=== PATIENT | female | born 1965 | race African-American/Black ===

== ENCOUNTER 2020-07-02 21:17 | Inpatient (IN) | payer MEDICARE ==
[~2020-07-02] VITALS: Ht 170.2 cm; Wt 75.3 kg
[2020-07-02 21:21] VITALS: BP 200/90
[2020-07-02] MEDS ORDERED: NORVASC5 MG PO (21:22)
[2020-07-02] MEDS ORDERED: COREG12.5 MG (21:26)
[2020-07-02] MEDS ORDERED: CLONIDINE HCL0.1 MG PO (21:27)
[2020-07-02] MEDS ORDERED: XANAX0.25 MG (21:28)
[2020-07-02] MEDS ORDERED: NORMODYNE / TR100 MG (21:28)
[2020-07-02] MEDS ORDERED: DILANTIN100 MG PO (21:36)
[2020-07-02 22:00] VITALS: BP 219/97
--- NOTE | 2020-07-02 22:05 | NUR ---
PT FROM ER VIA W/C. PT AAO X 4, RESP EVEN AND UNLABORED, NO DISTRESS NOTED, CL IN REACH, SR UP X 2.
[2020-07-03] MEDS ORDERED: COREG12.5 MG PO (00:05)
[2020-07-03 00:07] VITALS: BP 210/93
[2020-07-03] MEDS ORDERED: XANAX0.25 MG PO (00:09)
[2020-07-03 03:57] VITALS: BP 210/93; BMI 26.1
[2020-07-03 05:09] VITALS: BP 210/93
[2020-07-03 06:24] LABS: BASOPHILS 0.5 % (0-2); EOSINOPHILS 2.2 % (0-7); HEMATOCRIT 28.1 % (36.0-48.0); HEMOGLOBIN 8.7 g/dL (12-16); IMMATURE GRANULOCYTES 0.2 % (0-5); LYMPHOCYTE ABS# 1.86 10x3/uL (1.18-3.74); LYMPHOCYTES 28.9 % (15-50); MCV 93.7 fL (80.0-100.0); MEAN PLATELET VOLUME 11.1 fL (7.4-10.4); MONOCYTES 12.7 % (2-11); NEUTROPHIL ABS# 3.58 10x3/uL (1.56-6.13); NEUTROPHILS 55.5 % (40-80); PLATELET COUNT 281 10x3/uL (130-400); RDW 13.3 % (11.5-14.5); WBC 6.4 10x3/uL (4.8-10.8)
[2020-07-03 06:38] LABS: APTT 35.2 SECONDS (22.8-39.4)
[2020-07-03 06:48] LABS: ALBUMIN 2.8 g/dL (3.4-5.0); ANION GAP 18.5 mmol/L (8-16); BILIRUBIN - TOTAL 0.44 mg/dL (0.2-1.3); CALCIUM 8.9 mg/dL (8.5-10.1); CREATININE - SERUM 9.8 mg/dL (0.6-1.3); PHENYTOIN (DILANTIN) 0.9 ug/mL (10.0-20.0); PHOSPHOROUS 5.1 mg/dL (2.5-4.9); POTASSIUM - SERUM 4.5 mmol/L (3.5-5.1)
[2020-07-03 07:13] LABS: INR 1.24 (0.85-1.17); PROTIME 14.4 SECONDS (11.6-15.0)
[2020-07-03 08:17] VITALS: BP 166/66
[2020-07-03 11:36] VITALS: BP 146/66
[2020-07-03 12:54] VITALS: Ht 170.2 cm; Wt 75.3 kg
--- NOTE | 2020-07-03 14:19 | NUR ---
DIALYSIS COORDINATOR: OPHD SCHEDULE: [facility] TUE/TUE/TUE - 6:30 AM. BMM DC - PATIENT PATHWAYS
[2020-07-03 21:33] VITALS: BP 166/67
[2020-07-04 00:56] VITALS: BP 167/70
[2020-07-04 04:49] VITALS: BP 169/68
--- NOTE | 2020-07-04 05:18 | NUR ---
I have reviewed this patient and I concur with the Shift Assessment completed by the Licensed Practical Nurse today this shift.
[2020-07-04 05:44] LABS: BASOPHILS 0.4 % (0-2); HEMATOCRIT 26.9 % (36.0-48.0); HEMOGLOBIN 8.5 g/dL (12-16); IMMATURE GRANULOCYTES 0.2 % (0-5); LYMPHOCYTE ABS# 1.22 10x3/uL (1.18-3.74); LYMPHOCYTES 22.3 % (15-50); MCH 29.5 pg (26.0-34.0); MCHC 31.6 g/dL (31.0-37.0); MCV 93.4 fL (80.0-100.0); MEAN PLATELET VOLUME 10.8 fL (7.4-10.4); MONOCYTES 17.2 % (2-11); NEUTROPHIL ABS# 3.17 10x3/uL (1.56-6.13); NEUTROPHILS 57.9 % (40-80); PLATELET COUNT 272 10x3/uL (130-400); RBC 2.88 10x6/uL (4.00-5.40); RDW 13.2 % (11.5-14.5); WBC 5.5 10x3/uL (4.8-10.8)
[2020-07-04 06:05] LABS: ALBUMIN 2.7 g/dL (3.4-5.0); ANION GAP 13.1 mmol/L (8-16); BILIRUBIN - TOTAL 0.27 mg/dL (0.2-1.3); CALCIUM 8.6 mg/dL (8.5-10.1); MAGNESIUM - SERUM 1.9 mg/dL (1.8-2.4); PHOSPHOROUS 4.4 mg/dL (2.5-4.9); POTASSIUM - SERUM 4.3 mmol/L (3.5-5.1)
[2020-07-04 06:08] LABS: CARBON DIOXIDE 28.2 mmol/L (21.0-32.0); CREATININE - SERUM 7.1 mg/dL (0.6-1.3)
[2020-07-04 08:51] VITALS: BP 175/85
[2020-07-04 13:06] VITALS: BP 169/89
[2020-07-04 15:51] VITALS: BP 192/95
[2020-07-04 20:19] VITALS: BP 163/65
[2020-07-05 05:47] VITALS: BP 198/67
[2020-07-05 06:52] LABS: BASOPHILS 0.3 % (0-2); EOSINOPHILS 2.4 % (0-7); HEMATOCRIT 27.2 % (36.0-48.0); HEMOGLOBIN 8.6 g/dL (12-16); IMMATURE GRANULOCYTES 0.2 % (0-5); LYMPHOCYTE ABS# 1.46 10x3/uL (1.18-3.74); LYMPHOCYTES 22.1 % (15-50); MCH 29.7 pg (26.0-34.0); MCHC 31.6 g/dL (31.0-37.0); MCV 93.8 fL (80.0-100.0); MEAN PLATELET VOLUME 11.3 fL (7.4-10.4); MONOCYTES 14.4 % (2-11); NEUTROPHIL ABS# 4.01 10x3/uL (1.56-6.13); NEUTROPHILS 60.6 % (40-80); PLATELET COUNT 267 10x3/uL (130-400); RDW 13.3 % (11.5-14.5); WBC 6.6 10x3/uL (4.8-10.8)
[2020-07-05 07:20] LABS: ALBUMIN 2.8 g/dL (3.4-5.0); ANION GAP 15.9 mmol/L (8-16); BILIRUBIN - TOTAL 0.16 mg/dL (0.2-1.3); CALCIUM 8.8 mg/dL (8.5-10.1); CARBON DIOXIDE 24.9 mmol/L (21.0-32.0); MAGNESIUM - SERUM 2.1 mg/dL (1.8-2.4); PHOSPHOROUS 5.2 mg/dL (2.5-4.9); POTASSIUM - SERUM 4.8 mmol/L (3.5-5.1); PROTEIN - SERUM 7.1 g/dL (6.4-8.2)
[2020-07-05 07:21] LABS: CREATININE - SERUM 9.2 mg/dL (0.6-1.3)
[2020-07-05 08:26] VITALS: BP 195/82
[2020-07-05] MEDS ORDERED: FEXOFENADINE HC60 MG PO (11:31)
[2020-07-05] MEDS ORDERED: NICODERM CQ1 EAC3 TRANSDERM (11:31)
[2020-07-05] MEDS ORDERED: NORVASC10 MG PO (11:32)
[2020-07-05] MEDS ORDERED: ZOFRAN ODT4 MG/UDTAB PO (11:32)
[2020-07-05] MEDS ORDERED: PROTONIX40 MG PO (11:32)
--- NOTE | 2020-07-05 16:03 | NUR ---
SALINE LOCK TAKEN OUT, DISCHARGE PAPERS DISCUSSED WITH PATIENT AND TAKED OUT VIA WHEELCHAIR.
--- NOTE | 2020-07-05 18:00 | MORECARE ---
CASE MANAGEMENT DISCHARGE SUMMARY PATIENT: STEPHANIE SURESH UNIT: [id number] ADM DATE: 07/03/20 AGE: 54 : 65 SEX: F ROOM/BED: D.2132 AUTHOR: FLORENTIN OQUENDO PHYSICIAN: REFERRING PHYSICIAN: MISAEL ELLINGTON MD DATE OF SERVICE: 07/05/20 Case Management Discharge Planning Summary COMMENTS ENTERED DATE: 07/05/20 17:55 CT COMMENT TYPE: Discharge Planning REVIEWER: Nasir Alamo CM met with patient to complete DC plan and to evaluate needs. Patient lives independently with her SO, Justo Da Silva and her grandson, Alfonzo Rashid, . Patient stated that her home is safe and has electricity and running water. Patient stated that the home has a ramp. Patient stated that she has no problems paying for medications and she fills her medications at [facility], in [place]. Patient stated that her primary care is with the [facility], practitioner Aislinn Christie. Patient stated that she has dialysis MWF at [facility] in [place]. Notified Glenys Zamorano of DC. At discharge, the patient plans to return home and feels this is a safe discharge. CM discussed availability of home health, rehab services, and medical equipment. Patient declined HHS, SNF, IPR, and DME. Patient stated that her daughter visits her 5 x a week and helps where needed. Patient stated they have walker and shower chair. Patient voiced no other needs at this time and is satisfied with DC plan. Transportation provider at discharge will be with her SO, Justo Da Silva. CM will continue to follow and will assist as needed with dc plans/needs. DCP REVIEW SUMMARY ANTICIPATED D/C DATE: 07/05/2020 EXPECTED LOS : 2 CASE STATUS: DCP Initiated INITIAL REVIEW: 07/03/2020 INITIAL REVIEWER: Nasir Alamo FINAL DISCHARGE DISPOSITION: : FINAL REVIEWER: FINAL REVIEW DATE: DCP Focus Questions & Answers DCP Evaluation QUESTION: ANSWER Patient gives permission to discuss discharge plans with: (name, relationship and number) : Alfonzo whitehead, Patient's ability to cope with chronic illness : d. No chronic illness Patient's current cognitive status: : *Oriented to person, place, situation, time and present Family / Caregiver's ability to cope with chronic illness: : a. Adequate (ability to meet patient's medical needs, ensures patient attends medical appts.) Patient and/or caregiver agree upon recommended discharge plan? : Yes Physical Status: : Independent with ADL's Family / Caregiver's ability to cope with chronic illness: : a. Adequate (ability to meet patient's medical needs, ensures patient attends medical appts.) Functional screen assessment: : Basic needs can adequately be met by self Does the patient have the ability to pay for or attain post discharge needs / services? : Yes Living Arrangements: : Home with Extended Family Is there a likelihood that the patient will require additional services to return to the preadmission environment? : No Equipment needed for post hospitalization: : None Baseline cognitive status: : *Oriented to person, place, situation, time and present Patient with capacity for self-care or can be cared for in same environment as prior to hospitalization? : Yes Physical environment modification needed / anticipated for discharge: : No Medication Management: : Patient states can afford medications Medication Management: : Patient states can read and understand medication labels Pharmacy name(s): : [facility], in [place] Does Patient have transportation to get home and to follow-up medical appointments when discharged from the hospital? : Yes Would patient like to participate in any Care Coordination programs (if applicable): : Not applicable Does the patient have electricity at home? : Yes Does the patient have running water in their house? : Yes Equipment in use: : Walker - [place] Mental health screen: : No mental health history DCP Re-evaluation QUESTION: ANSWER Would patient like to participate in any Care Coordination programs (if applicable): : Not applicable PATIENT: STEPHANIE SURESH ENCOUNTER: [id number] MEDICAL RECORD#: [id number] ADMISSION DATE: 07/03/2020 DISCHARGE DATE: 07/05/2020 ATTENDING MD: MISAEL RUST : AGE: 54 MARITAL STATUS: M DC PLAN ID: [id number] FACILITY: [facility] PRINTED ON: 07/05/20 18:00 CT All edits/amendments must be made on the electronic document DICTATION DATE: 07/05/201799 TOOL CLERK: VINITA 07/05/20 1800 RPT#: [id number] DC DATE:07/05/20 STATUS: DIS IN [facility] [address] [place] [address] END OF REPORT
== END 2020-07-05 16:04 | disposition home or self-care (01) | DRG 304 ==
LOC: D.ER 21:17 → D.M2 23:09 → OBSVTIME 23:10 → D.M2 07-03 12:24
PROVIDERS: ADMIT Emergency Medicine; ATTEND Emergency Medicine
PROC: 5A1D70Z Performance of Urinary Filtration, Intermittent, Less than 6 Hours Per Day (ICD-10-PCS; principal; 2020-07-03)
DX: I16.0 Hypertensive urgency (principal); N18.6 End stage renal disease; E11.40 Type 2 diabetes mellitus with diabetic neuropathy, unspecified; I12.0 Hypertensive chronic kidney disease with stage 5 chronic kidney disease or end stage renal disease; E11.22 Type 2 diabetes mellitus with diabetic chronic kidney disease; F17.200 Nicotine dependence, unspecified, uncomplicated; F41.9 Anxiety disorder, unspecified